=== PATIENT | female | born 1975 | race Caucasian/White ===

== ENCOUNTER 2020-10-05 19:48 | Inpatient (IN) | payer OTHER ==
[~2020-10-05] VITALS: Ht 170.2 cm; Wt 108.4 kg
[~2020-10-05 19:48] MED LIST: CATAPRES 0.1MG0.1 MG PO; CIMZIA400 MG INJ; CYMBALTA60 MG PO; FOLIC ACID 1 MG1 MG PO; IBUPROFEN400 MG PO; METHOTREXA25 MG/1 ML INJ; NEURONTIN300 MG PO; PLAQUENIL200 MG PO; SEROQUEL400 MG PO; TRAMADOL HCL50 MG PO; VALIUM 5 MG TAB5 MG PO
[2020-10-05 20:23] LABS: HEMOGLOBIN 12.6 gm/dl (12.3-15.3); RED BLOOD COUNT 4.66 M/UL (4.00-5.10); WHITE BLOOD COUNT 4.7 K/UL (4.5-11.0)
[2020-10-05 20:47] LABS: BUN/CREATININE RATIO 13 (0-10)
[2020-10-06] MEDS ORDERED: LEVOTHYROXINE50 MC1 PO (10:51)
[2020-10-06] MEDS ORDERED: EFFEXOR XR75 MG PO (10:51)
[2020-10-06] MEDS ORDERED: ZYRTEC10 MG PO (10:51)
[2020-10-06] MEDS ORDERED: IBUPROFEN200 MG PO (10:52)
[2020-10-06] MEDS ORDERED: REMICADE I100 MG/VIA INJ (10:53)
[2020-10-06 18:19] LABS: BORDETELLA PARAPERTUSSIS Not Detected (Not Detectd); BORDETELLA PERTUSSIS Not Detected (Not Detectd); CHLAMYDIA PNEUMONIAE Not Detected (Not Detectd); CORONAVIRUS HKU1 Not Detected (Not Detectd); CORONAVIRUS NL63 Not Detected (Not Detectd); CORONAVIRUS OC43 Not Detected (Not Detectd); CORONOAVIRUS 229E Not Detected (Not Detectd); HUMAN METAPNEUMOVIRUS Not Detected (Not Detectd); HUMAN RHINOVIRUS/ENTEROVIRUS Not Detected (Not Detectd); INFLUENZA A Not Detected (Not Detectd); INFLUENZA B Not Detected (Not Detectd); MYCOPLASMA PNEUMONIAE Not Detected (Not Detectd); PARAINFLUENZA VIRUS 1 Not Detected (Not Detectd); PARAINFLUENZA VIRUS 2 Not Detected (Not Detectd); PARAINFLUENZA VIRUS 3 Not Detected (Not Detectd); PARAINFLUENZA VIRUS 4 Not Detected (Not Detectd); RESPIRATORY SYNCYTIAL VIRUS Not Detected (Not Detectd)
[2020-10-06 19:40] LABS: SARS-CoV-2 NOT DETECTED (Not Detectd)
[2020-10-07 06:30] LABS: HEMOGLOBIN 13.3 gm/dl (12.3-15.3); RED BLOOD COUNT 4.93 M/UL (4.00-5.10)
[2020-10-07 06:52] LABS: BUN/CREATININE RATIO 18 (0-10)
[2020-10-08 17:11] LABS: ANTIMYELOPEROXIDASE (MPO) ABS <9.0 U/mL (0.0-9.0); ANTIPROTEINASE 3 (PR-3) ABS <3.5 U/mL (0.0-3.5); ATYPICAL PANCA <1:20 titer (Neg:<1:20); CYTOPLASMIC (C-ANCA) <1:20 titer (Neg:<1:20); PERINUCLEAR (P-ANCA) <1:20 titer (Neg:<1:20)
[2020-10-10 13:43] LABS: BUN/CREATININE RATIO 25 (0-10)
[2020-10-11 03:52] LABS: HEMOGLOBIN 11.8 gm/dl (12.3-15.3); RED BLOOD COUNT 4.34 M/UL (4.00-5.10); WHITE BLOOD COUNT 11.9 K/UL (4.5-11.0)
[2020-10-11 05:54] LABS: BUN/CREATININE RATIO 33 (0-10)
--- NOTE | 2020-10-11 08:16 | NUR ---
10/11/20 0800 FACE IS FLUSHED THIS MORNING TEMP 98.1 OFFERS NO COMPLAINTS
[2020-10-11] MEDS ORDERED: PREDNISONE 20 M20 MG PO (12:44)
--- NOTE | 2020-10-11 17:06 | NUR ---
10/11/20 1445 AMBULATED AROUND ROOM OXYGEN OFF POX 88%
[2020-10-12 12:09] LABS: ASPERGILLUS FUMAGATUS IGG Negative (Negative); AUREOBASIDIUM PULLULANS IGG Negative (Negative); MICROPOLYSPORA FAENI IGG Negative (Negative); PIGEON SERUM IGG Negative (Negative); THERMOACTINOMYCES SACCHARI IGG Negative (Negative); THERMOACTINOMYCES VULGARIS IGG Negative (Negative)
== END 2020-10-12 11:27 | disposition home or self-care (01) | DRG 545 ==
LOC: ER1 19:48 → CDU 23:04 → MED SURG 4 23:04
PROVIDERS: Family Medicine; Internal Medicine; Internal Medicine Pulmonary Disease; ADMIT Internal Medicine
DX: M32.9 Systemic lupus erythematosus, unspecified (principal); J96.01 Acute respiratory failure with hypoxia; J18.9 Pneumonia, unspecified organism; I77.6 Arteritis, unspecified; L40.9 Psoriasis, unspecified; E03.9 Hypothyroidism, unspecified; E66.01 Morbid (severe) obesity due to excess calories; Z20.822 Contact with and (suspected) exposure to COVID-19; Z88.2 Allergy status to sulfonamides; Z90.710 Acquired absence of both cervix and uterus; Z68.29 Body mass index [BMI] 29.0-29.9, adult
CPT/HCPCS: 0240U; 36415; 36600; 71045; 71046; 80048; 80053; 81001; 82550; 82553; 82728; 82803; 83520; 83605; 83615; 83735; 83874; 83880; 84100; 84439; 84443; 84484; 85025; 85384; 85610; 86140; 86256; 86331; 86602; 86609; 86671; 87040; 87081; 87633; 93005; 94640; 94664; 94760; 99285; J0456; J1650; J2543; J2550; J2920; J2930; J7030; J7050; Q9967

== ENCOUNTER → 2020-10-23 | Outpatient (CLI) | payer OTHER ==
[~2020-10-23] MED LIST changes: +EFFEXOR XR75 MG PO; +IBUPROFEN200 MG PO; +LEVOTHYROXINE50 MC1 PO; +PREDNISONE 20 M20 MG PO; +REMICADE I100 MG/VIA INJ; +ZYRTEC10 MG PO
== END ==
LOC: EXRD 10:03
DX: J18.9 Pneumonia, unspecified organism (principal); B94.8 Sequelae of other specified infectious and parasitic diseases
CPT/HCPCS: 71046; 94060; 94729

== ENCOUNTER 2021-09-26 00:13 | Emergency (ER) | payer SELFPAY ==
[2021-09-26 00:53] LABS: HEMOGLOBIN 12.1 gm/dl (12.3-15.3); RED BLOOD COUNT 4.82 M/UL (4.00-5.10); WHITE BLOOD COUNT 10.3 K/UL (4.5-11.0)
[2021-09-26 01:22] LABS: BUN/CREATININE RATIO 19 (0-10)
[2021-09-26] MEDS ORDERED: TORADOL 10 MG T10 MG PO (03:28)
== END 2021-09-26 04:00 | disposition home or self-care (01) ==
LOC: ER1 00:13
PROVIDERS: Physician Assistant
DX: R07.89 Other chest pain (principal); Z88.2 Allergy status to sulfonamides
CPT/HCPCS: 71045; 80053; 82550; 82553; 83690; 84484; 85025; 85379; 85652; 93005; 96374; 99285; J1885